=== PATIENT | female | born 1980 | race Two or more races ===

== ENCOUNTER 2017-10-30 20:53 | Emergency (ER) | payer OTHER ==
[2017-10-30 21:13] VITALS: BP 131/74; PULSE 87; TEMP 97.8; BMI 31.6
[2017-10-30 23:15] LABS: HCG,QUALITATIVE URINE NEGATIVE
[2017-10-30 23:17] LABS: URINE APPEARANCE CLOUDY; URINE BILIRUBIN NEGATIVE (NEGATIVE); URINE BLOOD 2+ (NEGATIVE); URINE COLOR YELLOW; URINE GLUCOSE (UA) NEGATIVE (NEGATIVE); URINE KETONE NEGATIVE (NEGATIVE); URINE NITRITE NEGATIVE (NEGATIVE)
[2017-10-30 23:19] LABS: URINE LEUK ESTERASE 3+ (NEGATIVE); URINE PROTEIN 2+ (NEGATIVE)
[2017-10-30 23:20] LABS: EPI CELLS FEW /HPF (FEW); URINE HYALINE CAST 2 /lpf; URINE MUCUS MANY
--- NOTE | 2017-10-30 23:34 | PDOC ---
Rapid Medical Evaluation Chief Complaint: Urinary Problem Time Seen by Provider: 10/30/17 22:38 Medical Evaluation: Allergies Allergy/AdvReac Type Severity Reaction Status Date / Time No Known Allergies Allergy Verified 10/30/17 21:11 Vital Signs Temp Pulse Resp BP Pulse Ox 97.8 F 87 18 131/74 100 10/30/17 21:11 10/30/17 21:11 10/30/17 21:11 10/30/17 21:11 10/30/17 21:11 Discharge Disposition - Referrals Referrals: Nicole Benitez [Primary Care Provider] - - Patient Instructions - Post Discharge Activity
--- NOTE | 2017-10-30 23:46 | PDOC ---
History of Present Illness - General Chief Complaint: Urinary Problem Stated Complaint: POSSIBLE UTI Time Seen by Provider: 10/30/17 22:38 - History of Present Illness Initial Comments: 10/30/17 23:41 CHIEF COMPLAINT: UTI HISTORY OF PRESENT ILLNESS: 37 yo F with hx of recent UTI presents to [facility] with urinary discomfort and frequency. She reports that she saw a doctor approximately 1.5 months ago and was diagnosed with a UTI and given "a big white pill antibiotic" and Azo. Patient reports that "it went away a little, but now it's really bad." She denies any fever, chills, vomiting, or diarrhea. No recent travel or sick contacts. PAST MEDICAL HISTORY: Denies past medical history FAMILY HISTORY: Denies SOCIAL HISTORY:= Denies tobacco, alcohol, illicit drug use. SURGICAL HISTORY: Denies ALLERGIES: No known drug allergies REVIEW OF SYSTEMS as per HPI PHYSICAL EXAM General Appearance: Well-appearing, appropriately dressed. No apparent distress. HEENT: EOMI, PERRLA. No conjunctival pallor. No photophobia, scleral icterus. Respiratory/Chest: Lungs CTAB. Cardiovascular: RRR. S1, S2. Gastrointestinal/Abdominal: Normal bowel sounds. Abdomen soft, non-distended. No tenderness or rebound tenderness. No organomegaly, pulsatile mass, guarding , hernia, hepatomegaly, splenomegaly. Musculoskeletal/Extremities: No CVA tenderness b/l. Normal inspection. FROM of all extremities, normal capillary refill. Pelvis Stable. No tenderness to extremities, pedal edema, swelling, erythema or deformity. Integumentary: Appropriate color, dry, warm. No cyanosis, erythema, jaundice or rash Neurologic: guest service agent II-XII intact. Fully oriented, alert. Appropriate mood/affect. Motor strength 5/5. No appreciable EOM palsy, facial droop or sensory deficit. Past History - Past Medical History Allergies/Adverse Reactions: Allergies Allergy/AdvReac Type Severity Reaction Status Date / Time No Known Allergies Allergy Verified 10/30/17 21:11 Home Medications: Ambulatory Orders Nitrofurantoin Monohyd/M-Cryst [Macrobid -] 100 mg PO BID #20 capsule 10/30/17 COPD: No - Suicide/Smoking/Psychosocial Hx Smoking History: Never smoked *Physical Exam - Vital Signs Last Vital Signs Temp Pulse Resp BP Pulse Ox 97.8 F 87 18 131/74 100 10/30/17 21:11 10/30/17 21:11 10/30/17 21:11 10/30/17 21:11 10/30/17 21:11 ED Treatment Course - ADDITIONAL ORDERS Additional order review: Laboratory Results 10/30/17 23:00 Urine Color Yellow Urine Appearance Cloudy Urine pH 7.0 Ur Specific [place] 1.024 Urine Protein 2+ H Urine Glucose (UA) Negative Urine Ketones Negative Urine Blood 2+ H Urine Nitrite Negative Urine Bilirubin Negative Urine Urobilinogen 2.0 H Ur Leukocyte Esterase 3+ H Urine WBC (Auto) 186 Urine RBC (Auto) 80 Ur Epithelial Cells Few Hyaline Casts 2 Urine Mucus Many Urine HCG, Qual Negative Medical Decision Making - Medical Decision Making 10/30/17 23:45 37 yo F with hx of recent UTI presents to [facility] with urinary discomfort and frequency. -UA positive for 186 WBC Will rx Macrobid. Advised patient to take medication as prescribed and follow up with PCP if symptoms persist. Advised patient of signs and symptoms for return to ED. Patient verbalized understanding and agrees to plan. *DC/Admit/Observation/Transfer Diagnosis at time of Disposition: UTI (urinary tract infection) - Discharge Dispostion Disposition: HOME Condition at time of disposition: Stable Admit: No - Prescriptions Prescriptions: Nitrofurantoin Monohyd/M-Cryst [Macrobid -] 100 mg PO BID #20 capsule - Referrals Referrals: Nicole Benitez [Primary Care Provider] - - Patient Instructions Printed Discharge Instructions: DI for Urinary Tract Infection (UTI) Additional Instructions: As discussed, please complete the ENTIRE course of antibiotics, even if your symptoms improve. If you develop any fever, chills, vomiting, diarrhea, or any new or worsening symptoms, please return to the ER. - Post Discharge Activity
== END 2017-10-31 00:15 | disposition home or self-care (01) ==
LOC: JER 20:53 → JERFT 20:53 → JER 10-31 00:15
DX: N39.0 Urinary tract infection, site not specified (principal)
CPT/HCPCS: 81003; 81015; 84703; 87086; 87186; 99281-25

== ENCOUNTER 2018-01-13 02:33 | Emergency (ER) | payer OTHER ==
--- NOTE | 2018-01-13 02:49 | PDOC ---
History of Present Illness - General Stated Complaint: STOMACH PAIN/BACK PAIN Time Seen by Provider: 01/13/18 02:49 - History of Present Illness Initial Comments: 37 year old female with PMH of UTIs (most recently two in the past few months) presenting with nausea, right flank pain radiating to the groin, urinary frequency, and nausea for the past few days. States that she had two UTIs since August and was treated with antibiotics and resolution of symptoms. Over the last two weeks, however, she has had this intermittent, positional right flank pain that improves with Tylenol and ibuprofen but today was unrelenting so she sought care here. She has also had dysuria with her urinary frequency over the past two weeks. Denies fevers, vomiting, constipation, chest pain, SOB, diaphoresis, cough, or other sick symptoms. 01/13/18 03:29 Past History - Past Medical History Allergies/Adverse Reactions: Allergies Allergy/AdvReac Type Severity Reaction Status Date / Time No Known Allergies Allergy Verified 01/13/18 03:06 Home Medications: Ambulatory Orders Nitrofurantoin Monohyd/M-Cryst [Macrobid -] 100 mg PO BID #20 capsule 10/30/17 COPD: No - Suicide/Smoking/Psychosocial Hx Smoking History: Never smoked Review of Systems - Review of Systems Constitutional: No: Chills, Diaphoresis, Fever, Loss of Appetite HEENTM: No: Blurred Vision, Tearing Respiratory: No: Cough, Orthopnea, Shortness of Breath Cardiac (ROS): No: Chest Pain, Edema ABD/GI: Yes: Nausea, Poor Appetite. No: Vomiting : Yes: Burning, Dysuria Musculoskeletal: No: Muscle Pain, Muscle Weakness Integumentary: No: Bruising, Lumps, Pallor, Pruritus, Rash Neurological: No: Headache, Numbness, Tingling, Tremors Psychiatric: No: Anxiety, Depression Hematologic/Lymphatic: No: Anemia, Blood Clots *Physical Exam - Physical Exam General Appearance: Yes: Nourished, Appropriately Dressed, Apparent Distress, Mild Distress HEENT: positive: EOMI, RICHAR, Normal ENT Inspection, Normal Voice Neck: positive: Trachea midline, Normal Thyroid, Supple. negative: Tender, Rigid Respiratory/Chest: positive: Lungs Clear, Normal Breath Sounds. negative: Chest Tender, Respiratory Distress, Accessory Muscle Use Cardiovascular: positive: Regular Rhythm, Regular Rate Gastrointestinal/Abdominal: positive: Normal Bowel Sounds, Flat, Soft. negative : Tender Musculoskeletal: positive: Normal Inspection. negative: CVA Tenderness Extremity: positive: Normal Capillary Refill, Normal Inspection, Normal Range of Motion. negative: Tender Integumentary: positive: Normal Color, Dry, Warm Neurologic: positive: Fully Oriented, Alert, Normal Mood/Affect, Normal Response , Motor Strength / ED Treatment Course - LABORATORY CBC & Chemistry Diagram: 01/13/18 03:20 01/13/18 03:20 Medical Decision Making - Medical Decision Making 37 year old female with history of UTIs presenting with right sided flank pain for the past day. Vitals stable, afebrile, and no abdominal tenderness/ CVA tenderness. CT and labs corroborating renal stone in the bladder. Pain improved with 15 of toradol x 2 and 2 of iv morphine. Patient will be discharged with follow up with gwendolyn. 01/13/18 06:00 *DC/Admit/Observation/Transfer Diagnosis at time of Disposition: Nephrolithiasis - Discharge Dispostion Disposition: HOME Condition at time of disposition: Improved Admit: No - Referrals Referrals: Gino Ray MD [Staff Physician] - - Patient Instructions Printed Discharge Instructions: DI for Kidney Stones Additional Instructions: Your stone has passed through the most painful part, the ureters, and is currently in the bladder. Please drink plenty of water and the stone should pass on its own soon. Please use ibuprofen for the pain and follow up with Verito Cedillo this week. Please return to the ED if you have new or worsening symptoms. - Post Discharge Activity Forms/Work/School Notes: Back to Work
[2018-01-13 03:06] VITALS: BP 136/80; PULSE 90; TEMP 98.2; BMI 32.5
[2018-01-13] MEDS ORDERED: ACETAMINOPHEN 1000 MG/100 ML VIAL (NON FORMULARY) IVPB ONE (03:13)
[2018-01-13 03:26] LABS: BASO % 0.8 % (0-2.0); EOS % 1.5 % (0-4.5); HEMATOCRIT 32.6 % (32.4-45.2); HEMOGLOBIN 11.2 GM/dL (10.7-15.3); LYMPH % 19.2 % (8-40); MCHC 34.5 g/dl (32.0-36.0); MEAN PLT VOLUME 7.4 fl (7.5-11.1); MONO % 5.8 % (3.8-10.2); NEUT % 72.7 % (42.8-82.8); PLATELET COUNT 255 K/MM3 (134-434); RBC 4.02 M/mm3 (3.60-5.2); RDW 13.5 % (11.6-15.6); WHITE BLOOD COUNT 9.8 K/mm3 (4.0-10.0)
[2018-01-13] MEDS ORDERED: SODIUM CHLORIDE 1,000 ML IV STA (03:28)
[2018-01-13] MEDS ORDERED: ACETAMINOPHEN INJECTION 100 ML IVPB ONE (03:29)
[2018-01-13 03:42] LABS: URINE APPEARANCE CLEAR; URINE BILIRUBIN NEGATIVE (<2.0 mg/dL); URINE COLOR LTYELLOW; URINE GLUCOSE (UA) NEGATIVE (NEGATIVE); URINE KETONE NEGATIVE (NEGATIVE); URINE LEUK ESTERASE TRACE (NEGATIVE); URINE NITRITE NEGATIVE (NEGATIVE); URINE PROTEIN NEGATIVE (NEGATIVE); URINE UROBILINOGEN NEGATIVE mg/dL (0.2-1.0)
[2018-01-13 03:43] LABS: HCG,QUALITATIVE URINE NEGATIVE
[2018-01-13 03:46] LABS: EPI CELLS RARE /HPF (FEW); URINE BACTERIA RARE /hpf (NONE SEEN); URINE MUCUS RARE
[2018-01-13 04:04] LABS: ALBUMIN 3.8 g/dl (3.4-5.0); ALK PHOS 66 U/L (45-117); ANION GAP 11 (8-16); BILIRUBIN,TOTAL 0.2 mg/dL (0.2-1.0); BLOOD UREA NITROGEN 15 mg/dL (7-18); CALCIUM 8.7 mg/dL (8.5-10.1); CHLORIDE 105 mmol/L (98-107); CO2 23 mmol/L (21-32); CREATININE 0.6 mg/dL (0.55-1.02); GLUCOSE,RANDOM 121 mg/dL (74-106); LIPASE 140 U/L (73-393); POTASSIUM 4.1 mmol/L (3.5-5.1); SGOT/AST 19 U/L (15-37); SGPT/ALT 30 U/L (12-78); SODIUM 139 mmol/L (136-145)
[2018-01-13] MEDS ORDERED: KETOROLAC TROMETHAMINE 15 MG/ML VIAL IVPUSH ONE ×2 (04:09→04:46)
[2018-01-13] MEDS ORDERED: KETOROLAC TROMETHAMINE 15 MG/ML VIAL ONE (04:28)
[2018-01-13] MEDS ORDERED: ONDANSETRON 4 MG/2 ML VIAL IVPUSH ONE (04:42)
[2018-01-13] MEDS ORDERED: ONDANSETRON 4 MG/2 ML VIAL ONE (04:43)
[2018-01-13] MEDS ORDERED: KETOROLAC TROMETHAMINE 30 MG/1 ML VIAL ONE (04:53)
[2018-01-13] MEDS ORDERED: morphine CARPU-JECT 2 MG/1 ML DISP.SYRIN IVPUSH ONE (05:12)
[2018-01-13] MEDS ORDERED: morphine SULFATE 4 MG/ML VIAL ONE (05:13)
--- NOTE | 2018-01-13 06:11 | PDOC ---
Attending Attestation - Resident Resident Name: Alecia Higuera - ED Attending Attestation I have performed the following: I have examined & evaluated the patient, The case was reviewed & discussed with the resident, I agree w/resident's findings & plan - HPI HPI: 01/13/18 06:05 Pt comes with abdominal pain. Afebrile. History of UTI and kidney stones. - Physicial Exam PE: 01/13/18 06:08 Agree with resident exam - Medical Decision Making 01/13/18 06:08 Pt has a kidney stiones in the bladder. 01/13/18 06:11 Patient Name: KARLENE BARON THIS IS A PRELIMINARY REPORT FROM [facility]ING [facility]ARING EXAMIN[facility] DATE OF SERVICE: 2018-01-13 05:37:24 IMAGES: 515 EXAM: CT of the abdomen and pelvis without contrast HISTORY: Rule out stone. Right-sided pain COMPARISON: None. FINDINGS: There is minimal dilatation of the right renal collecting system and ureter and there is some minimal right perinephric and periureteral stranding but no right ureteral stone is identified. There is a 3 mm stone in the left posterior bladder near the left ureterovesicular junction. I believe that this stone probable 8 passed from the right ureter into the urinary bladder and rolled over to the left side of the bladder (I do not believe that there was a left ureteral stone because there is no left hydronephrosis, perinephric stranding, or history of left-sided pain). No other acute intra-abdominal abnormalities. Trace fluid in the pelvic cul-de-sac. Probably physiologic. There may be a left adnexal cyst. Borderline fatty liver. THIS DOCUMENT HAS BEEN ELECTRONICALLY SIGNED
== END 2018-01-13 06:19 | disposition home or self-care (01) ==
LOC: JER 02:33
PROC: 3E033NZ Introduction of Analgesics, Hypnotics, Sedatives into Peripheral Vein, Percutaneous Approach (ICD-10-PCS; principal; 2018-01-13)
DX: N13.2 Hydronephrosis with renal and ureteral calculous obstruction (principal); Z87.442 Personal history of urinary calculi
CPT/HCPCS: 36415; 74176; 80053; 81003; 81015; 83690; 84703; 85025; 87086; 96374; 99283-25; J0131; J7030

== ENCOUNTER 2019-07-08 08:47 | Emergency (ER) | payer OTHER ==
[2019-07-08 08:56] VITALS: BMI 32.9
[2019-07-08] MEDS ORDERED: ONDANSETRON 4 MG/2 ML VIAL ONE (10:04)
[2019-07-08] MEDS ORDERED: FAMOTIDINE 20 MG/50 ML IVPB 20 MG/50 ML MG IVPB ONE ×2 (10:05→10:06)
[2019-07-08] MEDS ORDERED: SODIUM CHLORIDE 1,000 ML IV STA (10:06)
[2019-07-08] MEDS ORDERED: ONDANSETRON 4 MG/2 ML VIAL IVPUSH ONE (10:06)
[2019-07-08 10:12] LABS: EPI CELLS 17.8 /HPF (0-5/HPF); HYALINE CASTS 36 /lpf (0-8); PH,URINE 5.5 (5.0-8.0); URINE APPEARANCE CLOUDY; URINE BACTERIA 0.5 /hpf (NEGATIVE); URINE BILIRUBIN NEGATIVE (NEGATIVE); URINE COLOR ORANGE; URINE GLUCOSE (UA) NEGATIVE (NEGATIVE); URINE KETONE 1+ (NEGATIVE); URINE LEUK ESTERASE 2+ (NEGATIVE); URINE NITRITE NEGATIVE (NEGATIVE); URINE PROTEIN 2+ (NEGATIVE); URINE RBC 2173 /hpf (0-4); URINE WBC 32 /hpf (0-5)
[2019-07-08 10:24] LABS: BASO % 0.4 % (0-2.0); HEMATOCRIT 37.4 % (32.4-45.2); HEMOGLOBIN 12.4 GM/dL (10.7-15.3); LYMPH % 10.1 % (8-40); MCH 27.2 pg (25.7-33.7); MCHC 33.1 g/dl (32.0-36.0); MEAN CELL VOLUME 82.2 fl (80-96); MEAN PLT VOLUME 7.3 fl (7.5-11.1); NEUT % 83.5 % (42.8-82.8); PLATELET COUNT 262 K/MM3 (134-434); RBC 4.56 M/mm3 (3.60-5.2); RDW 13.1 % (11.6-15.6); WHITE BLOOD COUNT 8.1 K/mm3 (4.0-10.0)
[2019-07-08 10:55] LABS: ALK PHOS 69 U/L (45-117); ANION GAP 9 MMOL/L (8-16); BILIRUBIN,TOTAL 0.3 mg/dL (0.2-1); BLOOD UREA NITROGEN 9.1 mg/dL (7-18); CALCIUM 9.2 mg/dL (8.5-10.1); CHLORIDE 104 mmol/L (98-107); CO2 24 mmol/L (21-32); CREATININE 0.6 mg/dL (0.55-1.3); GLUCOSE,RANDOM 106 mg/dL (74-106); LIPASE 84 U/L (73-393); PHOSPHOROUS 3.8 mg/dL (2.5-4.9); POTASSIUM 3.9 mmol/L (3.5-5.1); SGOT/AST 19 U/L (15-37); SGPT/ALT 20 U/L (13-61); SODIUM 137 mmol/L (136-145); TOT PROT 7.3 g/dl (6.4-8.2)
--- NOTE | 2019-07-08 11:40 | PDOC ---
History of Present Illness - General Chief Complaint: Pain Stated Complaint: STOMACH PAIN Time Seen by Provider: 07/08/19 09:10 History Source: Patient Exam Limitations: No Limitations - History of Present Illness Initial Comments: 07/08/19 11:34 39 yo F w/ a h/o kidney stones, anemia, s/p cholecystectomy comes in c/o 1 week of diffuse epigastric abdominal pain radiating to the back, associated with occasional chest pain, difficulty breathing, generalized malaise and weakness, chills, no documented fever. It all worsening on Saturday with her menstruation. ( +)nausea, occasional vomiting and diarrhea (5 episodes today). No known sick contacts, no recent travel, no burning/pain on urination. 07/08/19 11:44 Past History - Past Medical History Allergies/Adverse Reactions: Allergies Allergy/AdvReac Type Severity Reaction Status Date / Time No Known Allergies Allergy Verified 07/08/19 08:56 Home Medications: Ambulatory Orders Sulfamethoxazole/Trimethoprim [Bactrim Ds -] 1 tab PO BID 10 Days #20 tablet metroNIDAZOLE [Flagyl -] 500 mg PO TID 10 Days #30 tablet 07/08/19 Anemia: Yes COPD: No - Surgical History Cholecystectomy: Yes - Psycho Social/Smoking Cessation Hx Smoking History: Never smoked Have you smoked in the past 12 months: No Information on smoking cessation initiated: No Hx Alcohol Use: No Drug/Substance Use Hx: No Review of Systems - Review of Systems Able to Perform ROS?: Yes Constitutional: Yes: Chills, Malaise. No: Fever, Night Sweats HEENTM: No: Eye Pain, Recent change in vision, Throat Pain Respiratory: No: Cough, Shortness of Breath (none now) Cardiac (ROS): Yes: Chest Pain, Palpitations. No: Chest Tightness ABD/GI: Yes: Diarrhea, Nausea, Vomiting, Abdominal cramping : No: Dysuria, Hematuria Musculoskeletal: Yes: Back Pain Integumentary: No: Rash Neurological: No: Headache, Numbness, Dizziness Psychiatric: Yes: Change in Appetite Endocrine: No: Unexplained Weight Loss *Physical Exam - Vital Signs Last Vital Signs Temp Pulse Resp BP Pulse Ox 98.5 F 84 18 101/55 L 95 07/08/19 11:06 07/08/19 11:06 07/08/19 11:06 07/08/19 11:06 07/08/19 11:06 - Physical Exam General Appearance: Yes: Nourished. No: Apparent Distress HEENT: positive: RICHAR, Normal ENT Inspection, Normal Voice. negative: Pale Conjunctivae, Scleral Icterus (R), Scleral Icterus (L) Neck: positive: Supple. negative: Decreased range of motion, Tender midline Respiratory/Chest: positive: Lungs Clear, Normal Breath Sounds. negative: Respiratory Distress, Accessory Muscle Use Cardiovascular: positive: Regular Rhythm, Regular Rate Gastrointestinal/Abdominal: positive: Normal Bowel Sounds, Tender (epigastric/ RUQ/RLQ tenderness, no tenderness at McBurney's point, (-)Rosving sign), Soft Musculoskeletal: positive: Normal Inspection. negative: CVA Tenderness, Decreased Range of Motion Extremity: positive: Normal Capillary Refill, Normal Inspection, Normal Range of Motion. negative: Tender, Pedal Edema Integumentary: positive: Normal Color, Dry. negative: Jaundice, Rash Neurologic: positive: Fully Oriented, Alert, Normal Mood/Affect ED Treatment Course - LABORATORY CBC & Chemistry Diagram: 07/08/19 10:15 07/08/19 10:15 - ADDITIONAL ORDERS Additional order review: Laboratory Results 07/08/19 07/08/19 07/08/19 10:15 10:00 10:00 Sodium 137 Potassium 3.9 Chloride 104 Carbon Dioxide 24 Anion Gap 9 BUN 9.1 Creatinine 0.6 Est GFR (CKD-EPI)AfAm 131.22 Est GFR (CKD-EPI)NonAf 113.22 Random Glucose 106 Calcium 9.2 Phosphorus 3.8 Magnesium 2.0 Total Bilirubin 0.3 AST 19 ALT 20 Alkaline Phosphatase 69 Total Protein 7.3 Albumin 4.0 Lipase 84 Beta HCG, Quant < 1.0 Urine Color [place] Urine Appearance Cloudy Urine pH 5.5 Ur Specific [place] 1.020 Urine Protein 2+ H Urine Glucose (UA) Negative Urine Ketones 1+ H Urine Blood 3+ H Urine Nitrite Negative Urine Bilirubin Negative Urine Urobilinogen 1.0 Ur Leukocyte Esterase 2+ H Urine WBC (Auto) 32 Urine RBC (Auto) 2173 Urine Casts (Auto) 36 U Epithel Cells (Auto) 17.8 Urine Bacteria (Auto) 0.5 Urine HCG, Qual Negative 07/08/19 10:15 RBC 4.56 MCV 82.2 MCHC 33.1 RDW 13.1 MPV 7.3 L Neutrophils % 83.5 H Lymphocytes % 10.1 D Monocytes % 6.0 Eosinophils % 0.0 D Basophils % 0.4 - RADIOLOGY Radiology Studies Ordered: Category Date Time Status CHEST PA & LAT [RAD] Stat Radiology 07/08/19 09:58 Taken - Medications Given in the ED: ED Medications Discontinued Medications Generic Name Dose Route Start Last Admin Trade Name [place] PRN Reason Stop Dose Admin Famotidine/Sodium Chloride 20 mg in 50 mls @ 100 mls/hr 07/08/19 10:06 10:19 Pepcid 20 Mg Premixed Ivpb - IVPB 07/08/19 10:35 100 mls/hr ONCE ONE Administration Sodium Chloride 1,000 mls @ 1,000 mls/hr 07/08/19 10:06 07/08/19 10:19 Normal Saline - IV 07/08/19 11:05 1,000 mls/hr ASDIR STA Administration Ondansetron HCl 4 mg 07/08/19 10:06 07/08/19 10:19 Zofran Injection IVPUSH 07/08/19 10:07 4 mg ONCE ONE Administration Medical Decision Making - Medical Decision Making 07/08/19 11:50 39 yo F w/ a h/o anemia, kidney stones, s/p cholecystectomy p/w malaise, generalized weakness, abdominal pain, CP, occasional SOB. Pt currently menstruation R/O anemia Vs stone Vs appendicitis. Wll order EKG, cardiac enzymes and CXR due to chest pain will check a CBC, CMP, lipase. Will give pepcid, zofran, IV fluids and will reassess. 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 Ct abdomen/ pelvis ordered 07/08/19 14:[address] shows ileocolitis. Pt with diarrhea, will tx with antibiotics. WIll Rx bactrim and flagyl PMD follow up Pt asking to get discharged Return for worsening/concerning symptoms Pt verbalizes understanding and agrees with plan Discharge - Discharge Information Problems reviewed: Yes Clinical Impression/Diagnosis: Colitis Condition: Stable Disposition: HOME - Follow up/Referral - Patient Discharge Instructions Additional Instructions: Please make a follow up appointment with your regular doctor in 2 days. Return for worsening/concerning symptoms. - Post Discharge Activity
[2019-07-08 14:41] VITALS: BP 107/83; PULSE 78; TEMP 98.2
--- NOTE | 2019-07-08 15:05 | EKG ---
Test Reason : Blood Pressure : / mmHG Vent. Rate : 078 BPM Atrial Rate : 078 BPM P-R Int : 164 ms QRS Dur : 080 ms QT Int : 382 ms P-R-T Axes : 053 043 038 degrees QTc Int : 435 ms NORMAL SINUS RHYTHM NORMAL ECG NO PREVIOUS ECGS AVAILABLE Confirmed by JACQUELYN WOENS, TRENT ([id number]) on 07/08/2019 3:04:57 PM Referred By: Confirmed By:TRENT VALLADARES MD
== END 2019-07-08 14:35 | disposition home or self-care (01) ==
LOC: JER 08:47
PROC: 3E033GC Introduction of Other Therapeutic Substance into Peripheral Vein, Percutaneous Approach (ICD-10-PCS; principal; 2019-07-08)
DX: K52.9 Noninfective gastroenteritis and colitis, unspecified (principal); D64.9 Anemia, unspecified
CPT/HCPCS: 36415; 71046-TC-FY; 74177-TC; 80053; 81003; 82550; 83690; 83735; 84100; 84484; 84702; 84703; 85025; 87086; 93005; 93010; 96365; 96375; 99283-25; J7030

== ENCOUNTER 2023-09-04 10:50 | Emergency (ER) | payer OTHER ==
[2023-09-04 10:55] VITALS: BMI 31.8
[2023-09-04] MEDS ORDERED: diphenhydrAMINE HCL 25 MG CAPSULE (FP) PO ONE ×2 (13:15→13:34)
[2023-09-04] MEDS ORDERED: CLINDAMYCIN HCL 300 MG CAPSULE PO ONE (13:15)
[2023-09-04 13:18] VITALS: TEMP 98
[2023-09-04] MEDS ORDERED: CLINDAMYCIN HCL 150 MG CAPSULE (FP) ONE (13:34)
[2023-09-04 13:39] VITALS: BP 123/83; PULSE 90; RESP 16
[2023-09-04] MEDS ORDERED: CLINDAMYCIN HCL 150 MG CAPSULE (FP) PO ONE (13:45)
== END 2023-09-04 13:38 | disposition home or self-care (01) ==
LOC: JERFT 10:50
DX: R21 Rash and other nonspecific skin eruption (principal); L29.9 Pruritus, unspecified; M79.661 Pain in right lower leg; L03.115 Cellulitis of right lower limb
CPT/HCPCS: 99283-25